=== PATIENT | male | born 1935 | race Asian ===

== ENCOUNTER 2017-12-15 10:10 | Emergency (ER) | payer MEDICARE, OTHER, SELFPAY ==
--- NOTE | 2017-12-15 10:17 | DI.RAD.S_ITS ---
PROCEDURE: XR CHEST 1V INDICATIONS: vertigo TECHNIQUE: One view of the chest was acquired. COMPARISON: [facility], CR, XR CHEST 1VW (PORTABLE), 03/23/2016, 10:59. None. FINDINGS: Surgical changes and devices: The most superior sternal wire is fractured, from 03/23/2016 unchanged. Lungs and pleura: Mild bilateral interstitial prominence with cephalization of pulmonary vasculature suggesting mild CHF. No pleural effusions or pneumothorax. Mediastinum: Mediastinal contours appear normal. Heart size is mildly increased. Bones and chest wall: No suspicious bony lesions. Overlying soft tissues appear unremarkable. IMPRESSION: ? Mild mild CHF. Dictated by: Tulio Winston M.D. on 12/15/2017 at 10:37 Approved by: Tulio Winston M.D. on 12/15/2017 at 10:42
[2017-12-15 10:19] VITALS: BP 185/62; PULSE 49; RESP 20; TEMP 35.7; O2SAT 98
[2017-12-15 10:50] LABS: INR 2.5 (0.9-1.3); Prothrombin Time 27.2 SECONDS (10.1-12.7)
[2017-12-15 10:52] LABS: Alanine Aminotransferase 19 IU/L (21-72); Albumin 4.7 g/dL (3.5-5.0); Albumin Globulin Ratio 1.5 (1.0-2.8); Alkaline Phosphatase 76 U/L (38-126); Aspartate Aminotransferase 29 IU/L (17-59); BUN Creatinine Ratio 14.1 (6-22); Bilirubin Total 0.7 mg/dL (0.2-1.3); Blood Urea Nitrogen 24 mg/dL (9-20); Calcium 9.3 mg/dL (8.4-10.2); Carbon Dioxide 24 mmol/L (22-32); Chloride 105 mmol/L (98-107); Estimated Glomerular Filt Rate 38.8 mL/min (>60); Globulin 3.2 g/dL (1.7-4.1); Glucose 160 mg/dL (80-110); HEMOLYSIS < 15 (0-50); Potassium 4.3 mmol/L (3.4-5.1); Sodium 143 mmol/L (137-145); Total Protein 7.9 g/dL (6.3-8.2)
[2017-12-15 10:55] LABS: Add Manual Diff / Slide Review NO; Basophils Percent Auto 0.6 % (0-2); Eosinophils Percent Auto 1.7 % (2-4); Hematocrit 50.2 % (41-53); Hemoglobin 16.3 g/dL (13.5-17.5); Lymphocytes Percent Auto 12.6 % (25-40); Mean Corpuscular HGB Conc 32.5 % (30-36); Neutrophils Absolute Auto 11200 /uL (3000-5900); Neutrophils Percent Auto 81.1 % (50-75); Platelet Count 198 X10^3/uL (150-400); Red Blood Cell Count 5.83 X10^6/uL (4.5-5.9); Red Cell Distribution Width 14.3 % (11.6-14.8); White Blood Cell Count 13.8 X10^3/uL (4.5-11.0)
[2017-12-15 11:04] LABS: Troponin I 0.024 ng/mL (0.01-0.034)
[2017-12-15 11:30] VITALS: BP 156/91; PULSE 58; RESP 13; O2SAT 98
--- NOTE | 2017-12-15 11:35 | ED_ITS ---
HPI - Dizziness General Chief Complaint: Syncope Stated Complaint: N/V, history of vertigo Time Seen by Provider: 12/15/17 10:16 Source: patient and family (daughter) Mode of arrival: EMS Limitations: no limitations History of Present Illness HPI Narrative: This is an 82-year-old gentleman who comes to the emergency department with complaint of vertigo symptoms. Patient has history of vertigo, he tried his meclizine at home but symptoms continued. Typically his symptoms will last for about an hour and then either resolved or decrease extensively. Today they been going on for about for 5 hr. He states he started about 5:00 a.m. this morning. No vision changes, no headache, he has been nauseated had vomiting particularly after riding in the ambulance with all the movement. He states that made it much worse. His vomiting has decreased since he has been sitting in the bed for a while. No new weakness, no new numbness, no new difficulty with speech. Denies any chest pain or shortness of breath. No GI or urinary symptoms that are new. Patient does have a history of CABG. Has a history of CHF. He has an appointment tomorrow with his automated equipment engineer technician. Related Data Home Medications Medication Instructions Recorded Confirmed atorvastatin 20 mg PO DAILY 12/15/17 12/15/17 furosemide 20 mg PO DAILY 12/15/17 12/15/17 hydralazine 10 mg PO TID 12/15/17 12/15/17 isosorbide mononitrate 30 mg PO DAILY 12/15/17 12/15/17 losartan 100 mg PO DAILY 12/15/17 12/15/17 meclizine 25 mg PO PRN PRN 12/15/17 12/15/17 metoprolol succinate 25 mg PO DAILY 12/15/17 12/15/17 mupirocin 1 applic TOPICAL DIRECTED 12/15/17 12/15/17 nitroglycerin 0.4 mg SUBLINGUAL PRN PRN 12/15/17 12/15/17 promethazine 12.5 mg PO PRN PRN 12/15/17 12/15/17 warfarin 3 mg PO DAILY 12/15/17 12/15/17 Review of Systems Review of Systems All systems reviewed & are unremarkable except as noted in HPI and below Constitutional Denies chills, Denies fever(s), Denies frequent falls and Denies headache(s) Eyes Denies change in vision ENT Ears, Nose, Mouth, and Throat: Reports vertigo and Denies headache(s) Cardiovascular Denies chest pain, Denies diaphoresis, Denies syncope, Denies irregular heart rhythm, Denies lightheadedness, Denies palpitations, Denies dyspnea, Denies dyspnea on exertion and Denies orthopnea Respiratory Denies chest congestion, Denies cough, Denies dyspnea, Denies dyspnea on exertion and Denies wheezing Gastrointestinal Gastrointestinal: Denies abdominal pain, Denies change in bowel habits, Denies diarrhea, Reports nausea and Reports vomiting Musculoskeletal Denies tingling Neurologic Reports vertigo, Denies syncope, Denies frequent falls, Denies headache(s), Denies focal weakness, Denies sensory deficit, Denies tingling and Denies paresthesias Endocrine Denies palpitations Allergic/Immunologic Denies wheezing PFSH Medical History CHF (congestive heart failure) (Acute) Dyslipidemia (Acute) Hypertension (Acute) Meniere disease (Acute) Surgical History S/P CABG x 2 (Acute) Exam Narrative Exam Narrative: GEN: well nourished, well appearing male, alert and oriented x 3 , patient appears to be in mild distress. HEENT: Atraumatic, pupils are equal round reactive to light, extraocular movements are intact, nares are clear, TMs are clear with no fluid. Throat is clear without any exudates, erythema, tonsillar enlargement or uvular deviation HEART: Regular rate and rhythm without murmur, clicks, rubs. LUNGS:Lungs clear to auscultation, no wheezes, rales, crackles, chest moves symmetrically ABD:bowel sounds normal, soft, non-tender, no guarding, rebound, rigidity, no masses noted, no hepatosplenomegaly MSCL: Non-tender, no muscle atrophy, muscles strength 5/5 upper and lower extremities, full range of motion NEURO:CN 2-12 intact, sensation normal, finger nose finger test normal, heel frazier test normal Initial Vital Signs Initial Vital Signs: Vital Signs Temperature 96.3 F L 12/15/17 10:19 Pulse Rate 49 L 12/15/17 10:19 Respiratory Rate 20 12/15/17 10:19 Blood Pressure 185/62 H 12/15/17 10:19 Pulse Oximetry 98 11/06/18 10:19 Course Orders Ordered: ED Orders 12/15/17 10:17 XR chest 1V Stat 12/15/17 10:30 Complete Blood Count AUTO DIFF Stat Comprehensive Metabolic Panel Stat Prothrombin Time INR Stat Troponin I Stat 12/15/17 11:36 CT head/brain wo con Stat Discontinued Medications Sodium Chloride (Normal Saline 0.9%) 1,000 mls @ 1,000 mls/hr IV BOLUS ONE Stop: 12/15/17 11:15 Last Infusion: 12/15/17 12:35 Dose: 0 mls/hr Admin: 12/15/17 11:52 Dose: 1,000 mls/hr Lorazepam (Ativan) 0.5 mg IV NOW ONE Stop: 12/15/17 11:34 Last Admin: 12/15/17 11:52 Dose: 0.5 mg Vital Signs - 8 hr 12/15/17 10:19 12/15/17 11:30 12/15/17 12:00 Temperature 96.3 F L Pulse Rate 49 L 58 L 66 Respiratory Rate 20 13 13 Blood Pressure 185/62 H Blood Pressure [Right Arm] 156/91 H 148/71 H Pulse Oximetry 98 98 97 12/15/17 12:30 Temperature Pulse Rate 64 Respiratory Rate 14 Blood Pressure Blood Pressure [Right Arm] 147/83 H Pulse Oximetry 97 MDM - Dizziness Lab Data Attestation: I reviewed the patient's lab results. Result diagrams: 12/15/17 10:30 12/15/17 10:30 Lab Results 12/15/17 12/15/17 12/15/17 Range/Units 10:30 10:30 10:30 WBC 13.8 H (4.5-11.0) X10^3/uL RBC 5.83 (4.5-5.9) X10^6/uL Hgb 16.3 (13.5-17.5) g/dL Hct 50.2 (41-53) % MCV 86.0 (80-100) fL MCH 28.0 (26-34) PG MCHC 32.5 (30-36) % RDW 14.3 (11.6-14.8) % Plt Count 198 (150-400) X10^3/uL Neut % (Auto) 81.1 H (50-75) % Lymph % (Auto) 12.6 L (25-40) % [place] % (Auto) 4.0 (3-14) % Eos % (Auto) 1.7 L (2-4) % Baso % (Auto) 0.6 (0-2) % Neut # (Auto) 86798 H (7704-1885) /uL PT 27.2 H (10.1-12.7) SECONDS INR 2.5 H (0.9-1.3) Sodium 143 (137-145) mmol/L Potassium 4.3 (3.4-5.1) mmol/L Chloride 105 (98-107) mmol/L Carbon Dioxide 24 (22-32) mmol/L BUN 24 H (9-20) mg/dL Creatinine 1.70 H (0.66-1.25) mg/dL Estimated GFR 38.8 L (>60) mL/min BUN/Creatinine Ratio 14.1 (6-22) Glucose 160 H (80-110) mg/dL Calcium 9.3 (8.4-10.2) mg/dL Total Bilirubin 0.7 (0.2-1.3) mg/dL AST 29 (17-59) IU/L ALT 19 L (21-72) IU/L Alkaline Phosphatase 76 (38-126) U/L Troponin I 0.024 (0.01-0.034) ng/mL Total Protein 7.9 (6.3-8.2) g/dL Albumin 4.7 (3.5-5.0) g/dL Globulin 3.2 (1.7-4.1) g/dL Albumin/Globulin Ratio 1.5 (1.0-2.8) Imaging Data CT scan - head: Radiologist's impression: [address] [address] [address] Scan Report Signed Patient: Ivan Diego PMR#: [id number] : 6Acct:[id number] Age/Sex: 82 / MDate of Service: 12/15/17 Loc: ED Accession Number: [id number] Procedure: CT head/brain wo con Ordering Provider: Tamara Smith D.O. PROCEDURE: CT HEAD/BRAIN WO CON INDICATIONS: vertigo symptoms, much longer than normal TECHNIQUE: Noncontrast 4.5 mm thick angled axial sections acquired from the foramen magnum to the vertex, with coronal and sagittal reformats. For radiation dose reduction, the following was used: automated exposure control, adjustment of mA and/or kV according to patient size. COMPARISON: [facility], CT, CT BRAIN WO CON, 03/23/2016, 11:49. FINDINGS: Image quality: Excellent. CSF spaces: Basal cisterns are patent. No extra-axial fluid collections. The ventricles are symmetric in size and shape. Brain: No intracranial bleeds or masses. There is cerebral volume loss for age , with resultant ventricular and sulcal prominence. There are periventricular and deep white matter chronic small vessel ischemic changes. 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 There is intracranial internal carotid artery atherosclerosis. Skull and face: Calvarium and visualized facial bones appear intact, without suspicious lesions. Sinuses: Visualized sinuses and mastoids are clear. IMPRESSION: 1. No acute intracranial abnormalities. 2. Cerebral volume loss and chronic microvascular ischemic changes. 3. 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 Dictated by: Tulio Winston M.D. on 12/15/2017 at 11:54 Approved by: Tulio Winston M.D. on 12/15/2017 at 11:59 Chest x-ray: Radiologist's impression: [place] [address] XRay Report Signed Patient: Ivan Diego PMR#: [id number] : 1936Acct:[id number] Age/Sex: 82 / MDate of Service: 12/15/17 Loc: ED Accession Number: [id number] Procedure: XR chest 1V Ordering Provider: Tamara Smith D.O. PROCEDURE: XR CHEST 1V INDICATIONS: vertigo TECHNIQUE: One view of the chest was acquired. COMPARISON: [facility], CR, XR CHEST 1VW (PORTABLE), 03/23/2016, 10: 59. None. FINDINGS: Surgical changes and devices: The most superior sternal wire is fractured, from 03/23/2016 unchanged. Lungs and pleura: Mild bilateral interstitial prominence with cephalization of pulmonary vasculature suggesting mild CHF. No pleural effusions or pneumothorax. Mediastinum: Mediastinal contours appear normal. Heart size is mildly increased. Bones and chest wall: No suspicious bony lesions. Overlying soft tissues appear unremarkable. IMPRESSION: ? Mild mild CHF. Dictated by: Tulio Winston M.D. on 12/15/2017 at 10:37 Approved by: Tulio Winston M.D. on 12/15/2017 at 10:42 ECG Data Attestation: I personally reviewed and interpreted this ECG as follows: Prior ECG tracings: not available for review Interpretation: Sinus bradycardia with a rate of 51 P are 209 QRS of 117 and QTC of 479. Patient has incomplete right bundle-branch block. He has elevation in V1, he has elevated T waves in V2 V3 but does not appear to be ST elevation. Patient has a Q-wave in lead 3 and aVF but not noted elsewhere. MDM Narrative Medical decision making narrative: Patient family stated after evaluation and imaging when I went back to discuss the findings that patient does have a history of Meniere's disease which they did not initially tell me. Likely his symptoms is related to this being a little bit worse than normal. He is improved after the Ativan. Plan to make sure patient can stand and move safely and if he is plan for DC home with continuing meclizine. Patient's creatinine is slightly elevated although per his daughter he does have some chronic kidney disease do not have any priors for comparison. He also has a slightly elevated white count but I suspect this may be reactive to the vomiting. He does not have any other signs of infection currently. Head CT did not show any acute changes, chest x-ray did not show any acute changes. Troponin did not say any new changes. Patient did not have any prior EKGs for comparison to today's. Patient was able to stand and walk without any issue. He is feeling better after ativan. he lives with family and they are motivated to take care of him and live with . Patient has appt tomorrow with his automated equipment engineer technician. Discharge Plan Departure Patient Disposition: Home Clinical Impression: Vertigo, Meniere disease Discharge Date/Time: 12/15/17 13:35 Interventions: ED Discharge Assessment Last Done: 12/15/17 14:04 Instructions: DI for Meniere's Disease Activity Restrictions/Additional Instructions: Follow-up with your primary care physician and/or each E and T physician. If you are unable to follow with the when you saw before high and today has a referral included for local ears Nose Throat doctor. You may continue meclizine as needed for symptoms. Return to the emergency department for persistent symptoms, sudden severe headache, new vision changes, new weakness, difficulty with speech or other new or concerning symptoms. If you are unable to walk or move safely, persistent vomiting. Prescriptions: No Action hydralazine 10 mg Tablet 10 mg PO TID RF: 0 atorvastatin 20 mg Tablet 20 mg PO DAILY RF: 0 isosorbide mononitrate 60 mg tablet extended release 24 hr 30 mg PO DAILY RF: 0 furosemide 20 mg Tablet 20 mg PO DAILY RF: 0 warfarin 3 mg tablet 3 mg PO DAILY RF: 0 meclizine 25 mg Tablet 25 mg PO PRN PRN (Reason: Dizziness) RF: 0 promethazine 25 mg Tablet 12.5 mg PO PRN PRN (Reason: Nausea) RF: 0 nitroglycerin 0.4 mg tablet, sublingual 0.4 mg Sublingual PRN PRN (Reason: Chest Pain) RF: 0 mupirocin 2 % Ointment 1 applic TOPICAL DIRECTED RF: 0 metoprolol succinate 25 mg tablet extended release 24 hr 25 mg PO DAILY RF: 0 losartan 100 mg tablet 100 mg PO DAILY RF: 0 Referrals: Manish Cota MD [Physician] -
[2017-12-15] MEDS: SODIUM CHLORIDE 0.9% 1,000 ML 1000 ML IV (11:52)
[2017-12-15] MEDS: LORazepam 2 MG/ML SYRINGE 0.5 MG IV (11:52)
[2017-12-15 12:00] VITALS: BP 148/71; PULSE 66; RESP 13; O2SAT 97
[2017-12-15 12:30] VITALS: BP 147/83; PULSE 64; RESP 14; O2SAT 97
--- NOTE | 2017-12-15 13:25 | PC.NURSE ---
Pt took a few steps and almost fell several times. States a little dizzy, but feels more unsteady
== END 2017-12-15 13:35 | disposition home or self-care (01) ==
PROVIDERS: Emergency Provider Emergency Medicine
DX: H81.09 Meniere's disease, unspecified ear (principal); R55 Syncope and collapse
CPT/HCPCS: 70450; 71045; 80053; 84484; 85025; 85610; 93005; 96361; 96374; 99283; 99285; J2060

== ENCOUNTER 2024-11-21 17:34 | Emergency (ER) | payer MEDICARE, OTHER, SELFPAY ==
[2024-11-21 18:02] VITALS: BP 145/75; PULSE 70; RESP 18; TEMP 36.8; O2SAT 95; BMI 24.0
--- NOTE | 2024-11-21 18:13 | ED.RECABL ---
HPI - Recheck/Abnormal Lab/Rx General Chief Complaint: Recheck/Abnormal Lab/Rx Stated Complaint: Increased white count Time Seen by Provider: 11/21/24 18:13 Source: patient and family Mode of arrival: Ambulatory Related Data Home Medications ?Medication ?Instructions ?Recorded ?Confirmed atorvastatin 20 mg tablet 20 mg PO DAILY 12/15/17 12/15/17 furosemide 20 mg tablet 20 mg PO DAILY 12/15/17 12/15/17 hydralazine 10 mg tablet 10 mg PO TID 12/15/17 12/15/17 isosorbide mononitrate 60 mg 30 mg PO DAILY 12/15/17 12/15/17 tablet,extended release 24 hr losartan 100 mg tablet 100 mg PO DAILY 12/15/17 12/15/17 meclizine 25 mg tablet 25 mg PO PRN PRN Dizziness 12/15/17 12/15/17 metoprolol succinate 25 mg 25 mg PO DAILY 12/15/17 12/15/17 tablet,extended release 24 hr mupirocin 2 % topical ointment 1 applic topical DIRECTED 12/15/17 12/15/17 nitroglycerin 0.4 mg sublingual 0.4 mg sublingual PRN PRN Chest 12/15/17 12/15/17 tablet Pain promethazine 25 mg tablet 12.5 mg PO PRN PRN Nausea 12/15/17 12/15/17 warfarin 3 mg tablet 3 mg PO DAILY 12/15/17 12/15/17 Allergies Allergy/AdvReac Type Severity Reaction Status Date / Time No Known Drug Allergies Allergy Verified 11/21/24 18:03 Patient History Medical History (Updated 12/30/17 @ 00:00 by ) Meniere disease Dyslipidemia CHF (congestive heart failure) Hypertension Surgical History S/P CABG x 2 Social History Smoking Status: Never smoker Smoking Status: Never smoker Exam Initial Vital Signs Initial Vital Signs: Vital Signs Temperature 98.2 F 11/21/24 18:02 Pulse Rate 70 11/21/24 18:02 Respiratory Rate 18 11/21/24 18:02 Blood Pressure 145/75 H 11/21/24 18:02 Pulse Oximetry 95 11/21/24 18:02 Oxygen Delivery Method Room Air 11/21/24 18:02 Course Vital Signs Vital signs: Vital Signs - 8 hr 11/21/24 18:02 Temperature 98.2 F Pulse Rate 70 Respiratory Rate 18 Blood Pressure 145/75 H Pulse Oximetry 95 Oxygen Delivery Method Room Air Discharge Plan Departure Prescriptions: No Action hydralazine 10 mg Tablet 10 mg PO TID atorvastatin 20 mg Tablet 20 mg PO DAILY isosorbide mononitrate 60 mg tablet extended release 24 hr 30 mg PO DAILY furosemide 20 mg Tablet 20 mg PO DAILY warfarin 3 mg tablet 3 mg PO DAILY meclizine 25 mg Tablet 25 mg PO PRN PRN (Reason: Dizziness) promethazine 25 mg Tablet 12.5 mg PO PRN PRN (Reason: Nausea) nitroglycerin 0.4 mg tablet, sublingual 0.4 mg Sublingual PRN PRN (Reason: Chest Pain) mupirocin 2 % Ointment 1 applic TOPICAL DIRECTED metoprolol succinate 25 mg tablet extended release 24 hr 25 mg PO DAILY losartan 100 mg tablet 100 mg PO DAILY
[2024-11-21 18:36] LABS: Add Manual Diff / Slide Review NO; Hematocrit 46.7 % (41-53); Hemoglobin 15.1 g/dL (13.5-17.5); Lymphocytes Absolute Auto 2100 /uL (1100-4500); Mean Corpuscular HGB Conc 32.4 % (30-36); Mean Corpuscular Hemoglobin 28.5 PG (26-34); Mean Corpuscular Volume 87.9 fL (80-100); Platelet Count 181 X10^3/uL (150-400)
[2024-11-21 18:43] LABS: INR 2.5 (0.9-1.3); Prothrombin Time 28.1 SECONDS (9.4-12.5)
[2024-11-21 18:46] LABS: PTT Partial Thromboplastin Tim 46 SECONDS (25.1-36.5)
[2024-11-21 18:53] LABS: Alanine Aminotransferase 45 IU/L (<50); Albumin 4.7 g/dL (3.5-5.0); Albumin Globulin Ratio 1.4 (1.0-2.8); Alkaline Phosphatase 95 U/L (38-126); Blood Urea Nitrogen 54 mg/dL (9-20); Calcium 8.7 mg/dL (8.4-10.2); Carbon Dioxide 19 mmol/L (22-32); Chloride 109 mmol/L (98-107); Estimated Glomerular Filt Rate 17 mL/min (>60); Globulin 3.3 g/dL (1.7-4.1); Glucose 112 mg/dL (70-99); HEMOLYSIS < 15 (0-50); Potassium 4.7 mmol/L (3.4-5.1); Sodium 140 mmol/L (137-145); Total Protein 8.0 g/dL (6.3-8.2)
--- NOTE | 2024-11-21 20:00 | DI.US.S_ITS ---
PROCEDURE: US RENAL COMPLETE INDICATIONS: ACUTE VS CHRONIC KIDNEY FAILURE TECHNIQUE: Real-time scanning was performed of the kidneys and bladder, with image documentation. COMPARISON: None. FINDINGS: Kidneys: Kidneys are normal in size. Right kidney measures 8.6 cm long; left kidney measures 10.0 cm long. Right renal cortical thickness is 1.6 cm; left renal cortical thickness is 1.5 cm. Renal cortical echotexture is normal. No hydronephrosis or nephrolithiasis. No suspicious solid mass lesions. Bilateral simple cysts measuring up to 1.2 cm on the right and 2.3 cm on the left. Bladder: Pre-void bladder volume is 115 mL. Post-void residual is 0 mL. Pre- void images demonstrate no intraluminal masses or stones. On pre-void images, neither ureteral jets are noted with color Doppler interrogation. (Of note, ureteral jets may not be detectable in up to 25% of cases due to insufficient differences in specific gravity between ureteral and bladder urine). Miscellaneous: No free pelvic fluid. IMPRESSION: No hydronephrosis. No acute abnormalities. Dictated by: Tor Gillespie M.D. on 11/21/2024 at 20:57 Approved by: Tor Gillespie M.D. on 11/21/2024 at 20:58
[2024-11-21 23:59] VITALS: BP 161/72
[2024-11-22] VITALS: BP 159/72; PULSE 65; O2SAT 95
--- NOTE | 2024-11-22 00:23 | ED.RECABL ---
HPI - Recheck/Abnormal Lab/Rx General Chief Complaint: Recheck/Abnormal Lab/Rx Stated Complaint: Increased white count Time Seen by Provider: 11/21/24 18:13 Source: patient and family Mode of arrival: Ambulatory History of Present Illness HPI narrative: 89-year-old male who has told by his PCP to come to the ER due to an elevated white count. Patient does have a history of congestive heart failure but is asymptomatic since his visit here in the ER. Patient's WBC count here in the ER is 11.6. Although his creatinine level has increased from 1.70-3.30. He did see a sheetrock applicator in the past through [place] but no longer sees one due to being told that he did not need one anymore. Related Data Home Medications ?Medication ?Instructions ?Recorded ?Confirmed atorvastatin 20 mg tablet 20 mg PO DAILY 12/15/17 12/15/17 furosemide 20 mg tablet 20 mg PO DAILY 12/15/17 12/15/17 hydralazine 10 mg tablet 10 mg PO TID 12/15/17 12/15/17 isosorbide mononitrate 60 mg 30 mg PO DAILY 12/15/17 12/15/17 tablet,extended release 24 hr losartan 100 mg tablet 100 mg PO DAILY 12/15/17 12/15/17 meclizine 25 mg tablet 25 mg PO PRN PRN Dizziness 12/15/17 12/15/17 metoprolol succinate 25 mg 25 mg PO DAILY 12/15/17 12/15/17 tablet,extended release 24 hr mupirocin 2 % topical ointment 1 applic topical DIRECTED 12/15/17 12/15/17 nitroglycerin 0.4 mg sublingual 0.4 mg sublingual PRN PRN Chest 12/15/17 12/15/17 tablet Pain promethazine 25 mg tablet 12.5 mg PO PRN PRN Nausea 12/15/17 12/15/17 warfarin 3 mg tablet 3 mg PO DAILY 12/15/17 12/15/17 Allergies Allergy/AdvReac Type Severity Reaction Status Date / Time No Known Drug Allergies Allergy Verified 11/21/24 18:03 Review of Systems Review of Systems ROS Unobtainable: All systems reviewed & are unremarkable except as noted in HPI and below Patient History Medical History (Updated 11/22/24 @ 01:07 by Yaya Austin MD) Meniere disease Dyslipidemia CHF (congestive heart failure) Hypertension Surgical History S/P CABG x 2 Smoking Status: Never smoker Exam Narrative Exam Narrative: General: Patient appears to be in no acute distress, acting appropriately Head: normocephalic, atraumatic, HEENT: Pupils equal round reactive, eyes tracking well, neck supple, no JVD Heart: regular rate and rhythm, no murmurs, rubs, or gallops heard Lungs: clear to auscultation, no adventitious sounds Abdomen: soft , nontender, nondistended, positive bowel sounds Neurological: no focal neurological signs, moving all extremities well, alert and oriented x3, Psych: good judgment ,good insight, mood is normal. Initial Vital Signs Initial Vital Signs: Vital Signs Temperature 98.2 F 11/21/24 18:02 Pulse Rate 70 11/21/24 18:02 Respiratory Rate 18 11/21/24 18:02 Blood Pressure 145/75 H 11/21/24 18:02 Pulse Oximetry 95 11/21/24 18:02 Oxygen Delivery Method Room Air 11/21/24 18:02 Course Orders Ordered: ED Orders 11/21/24 18:13 UA Complete [Urinalysis and Microscopic] Stat 11/21/24 18:20 CBC Auto Diff [Complete Blood Count AUTO DIFF] Stat CMP [Comprehensive Metabolic Panel] Stat PTT Partial Thromboplastin [place] Stat Prothrombin Time INR Stat 11/21/24 20:00 US renal complete Stat Reevaluation(s) Reevaluation #1: Upon re-evaluation, patient remains asymptomatic. Consultations Consultation #1: consultation with customer facilities supervisor made who suggested patient can just be discharged home and to stay off his Lasix and losartan. Patient will follow up with Nephrology. Time: 01:07 Vital Signs Vital signs: Vital Signs - 8 hr 11/21/24 18:02 Temperature 98.2 F Pulse Rate 70 Respiratory Rate 18 Blood Pressure 145/75 H Pulse Oximetry 95 Oxygen Delivery Method Room Air MDM - Recheck/Abnormal Lab/Rx Lab Data 11/21/24 18:20 11/21/24 18:20 Labs: Lab Results 11/21/24 Range/Units 18:20 WBC 11.6 H (4.5-11.0) X10^3/uL RBC 5.31 (4.5-5.9) X10^6/uL Hgb 15.1 (13.5-17.5) g/dL Hct 46.7 (41-53) % MCV 87.9 (80-100) fL MCH 28.5 (26-34) PG MCHC 32.4 (30-36) % RDW 14.2 (11.6-14.8) % Plt Count 181 (150-400) X10^3/uL Neut % (Auto) 62.4 (50-75) % Lymph % (Auto) 18.3 L (25-40) % [place] % (Auto) 8.8 (3-14) % Eos % (Auto) 9.3 H (2-4) % Baso % (Auto) 1.2 (0-2) % Neut # (Auto) 7200 H (2121-1353) /uL Lymph # (Auto) 2100 (4292-6969) /uL [place] # (Auto) 1000 H (0-900) /uL Eos # (Auto) 1100 H (0-450) /uL Baso # (Auto) 100 (0-100) /uL PT 28.1 H (9.4-12.5) SECONDS INR 2.5 H (0.9-1.3) APTT 46 H (25.1-36.5) SECONDS Sodium 140 (137-145) mmol/L Potassium 4.7 (3.4-5.1) mmol/L Chloride 109 H (98-107) mmol/L Carbon Dioxide 19 L (22-32) mmol/L BUN 54 H (9-20) mg/dL Creatinine 3.30 H (0.66-1.25) mg/dL Estimated GFR 17 L (>60) mL/min BUN/Creatinine Ratio 16.4 (6-22) Glucose 112 H (70-99) mg/dL Calcium 8.7 (8.4-10.2) mg/dL Total Bilirubin 0.6 (0.2-1.3) mg/dL AST 40 (17-59) IU/L ALT 45 (<50) IU/L Alkaline Phosphatase 95 (38-126) U/L Total Protein 8.0 (6.3-8.2) g/dL Albumin 4.7 (3.5-5.0) g/dL Globulin 3.3 (1.7-4.1) g/dL Albumin/Globulin Ratio 1.4 (1.0-2.8) Imaging Data renal ultrasound: Radiologist's Impression: No hydronephrosis. No acute abnormalities. MDM Narrative Medical decision making narrative: 89-year-old male who has told by his PCP to come in for an evaluation due to an elevated white count does not have much of an elevated white count here in the ED. patient does have a worsening kidney function but not at the point of needing any emergent dialysis. Patient is asymptomatic. Advised to stay off his Lasix and losartan and follow up with Nephrology. Discharge Plan Departure Patient Disposition: Home Clinical Impression: Acute kidney injury Instructions: DI for Acute Kidney Injury Activity Restrictions/Additional Instructions: Stay off of Lasix and losartan for now. Follow up with Nephrology as soon as possible. Can come back to ER if having any new symptoms. Prescriptions: No Action hydralazine 10 mg Tablet 10 mg PO TID atorvastatin 20 mg Tablet 20 mg PO DAILY isosorbide mononitrate 60 mg tablet extended release 24 hr 30 mg PO DAILY furosemide 20 mg Tablet 20 mg PO DAILY warfarin 3 mg tablet 3 mg PO DAILY meclizine 25 mg Tablet 25 mg PO PRN PRN (Reason: Dizziness) promethazine 25 mg Tablet 12.5 mg PO PRN PRN (Reason: Nausea) nitroglycerin 0.4 mg tablet, sublingual 0.4 mg Sublingual PRN PRN (Reason: Chest Pain) mupirocin 2 % Ointment 1 applic TOPICAL DIRECTED metoprolol succinate 25 mg tablet extended release 24 hr 25 mg PO DAILY losartan 100 mg tablet 100 mg PO DAILY Referrals: Juan Lucas MD [Primary Care Provider, Family Practice] Stand Alone Forms: Patient Portal/API
[2024-11-22 00:30] VITALS: BP 151/69; PULSE 63; RESP 19; O2SAT 98
[2024-11-22 01:00] VITALS: BP 142/64; PULSE 62; RESP 18; O2SAT 99
== END 2024-11-22 01:31 | disposition home or self-care (01) ==
PROVIDERS: Emergency Medicine; Emergency Provider Family Medicine; PCP Family Medicine
DX: N18.9 Chronic kidney disease, unspecified (principal)
CPT/HCPCS: 76770; 80053; 85025; 85610; 85730; 99281; 99284